=== PATIENT | female | born 1995 | race Caucasian/White ===

== ENCOUNTER 2020-05-13 23:51 | Emergency (ER) | payer MEDICAID, SELFPAY ==
[2020-05-13 23:57] VITALS: BP 125/87; PULSE 88; RESP 16; TEMP 36.9; O2SAT 98; BMI 32.4
--- NOTE | 2020-05-14 00:13 | ED_ITS ---
HPI - Ear Problem General: Chief complaint: Ear Stated complaint: foreign body in ear Time Seen by Provider: 05/13/20 23:53 Source: patient Mode of arrival: ambulatory Limitations: no limitations History of Present Illness: HPI Narrative: Patient is a very nice 25-year-old female who presents to ED today with a complaint of he possible moth in her left ear. Patient tells me they were walking when she felt the moth fly into her ear. No drainage/blood from the ear. No changes in hearing. No tinnitus. MD Complaint: foreign body Location: left ear Severity: mild Relieving factors: nothing Exacerbating factors: nothing Associated symptoms: Reports no associated symptoms and ear or mastoid pain (L ear pain-intermittently when she feels moth move); Denies tinnitus Treatment prior to arrival: none Review of Systems ENMT: Reports: ear or mastoid pain (L ear pain-intermittently when she feels moth move); Denies: ear discharge, change in hearing, tinnitus or disequilibrium Physical Exam Const: COMMON NORMALS: no acute distress, average body habitus, patient oriented x3, no limitations, healthy appearing, alert and well nourished HENMT: COMMON NORMALS: hearing grossly normal bilaterally and external ears normal EXTERNAL EAR: Yes external ears normal, Yes mastoids normal and Yes no periauricular adenopathy EXTERNAL AUDITORY CANAL: Abnormal EAC present EAC laterality: left (can visualize small portion of moth wing and leg) TYMPANIC MEMBRANE: other (TM visualized after insect removed; small amount of superior erythema but intact) Neuro: COMMON NORMALS: patient oriented x3 SENSORIUM/ORIENTATION: Yes alert Procedures FB Removal Ear Location: ear canal (L) Foreign Body Suspected: insect TM intact pre-procedure: yes Foreign Body Removed: yes Foreign Body Removal Technique: irrigation Tympanic Membrane Intact Post Procedure: Yes Patient Tolerated Procedure: well Complications: none Course Vital Signs: Vital signs: Vital Signs Temperature 98.5 F 05/13/20 23:57 Pulse Rate 88 05/13/20 23:57 Respiratory Rate 16 05/13/20 23:57 Blood Pressure 125/87 05/13/20 23:57 Pulse Oximetry 98 05/13/20 23:57 Discharge Plan Discharge Patient Disposition: Home Clinical Impression: Acute foreign body of left ear Qualifiers: Encounter type: initial encounter Qualified Code(s): T16.2XXA - Foreign body in left ear, initial encounter Condition: Stable Discharge Orders: Discharge Order (Routine); Ordered 05/14/20 Ordered By: Theodora Patino Referrals: Charlette Willoughby MD [Primary Care Provider] - Coding Level of Care Code ED Community Services Coordinator for [facility] Mejía
== END 2020-05-14 00:25 | disposition home or self-care (01) ==
PROVIDERS: Emergency Provider Physician Assistant; PCP Family Medicine
DX: T16.2XXA Foreign body in left ear, initial encounter (principal); X58.XXXA Exposure to other specified factors, initial encounter
CPT/HCPCS: 12345; 99281

== ENCOUNTER 2020-11-14 14:55 | Emergency (ER) | payer MEDICAID, SELFPAY ==
[2020-11-14 15:04] VITALS: BP 125/74; PULSE 73; RESP 18; TEMP 36.9; O2SAT 99; BMI 32.4
--- NOTE | 2020-11-14 15:19 | XRR_ITS ---
PROCEDURE INFORMATION: Exam: XR Left Wrist Exam date and time: 11/14/2020 3:20 PM Age: 25 years old Clinical indication: Injury or trauma; Fall; Blunt trauma (contusions or hematomas); Wrist; Left; Additional info: Pain/tender/fall TECHNIQUE: Imaging protocol: XR Left wrist. Views: 1 or 2 views. COMPARISON: No relevant prior studies available. FINDINGS: Bones/joints: Negative for acute bony abnormality Soft tissues: Normal. XR/XR wrist LT 2V [id number] IMPRESSION: No acute findings.
[2020-11-14 15:21] VITALS: BP 122/84; PULSE 81; RESP 16; O2SAT 94
[2020-11-14 15:22] VITALS: PULSE 81
[2020-11-14] MEDS: ibuprofen 600 mg Tablet PO (15:28)
--- NOTE | 2020-11-14 15:32 | W.ED.EXTPRO ---
HPI - Extremity Problem General: Chief complaint: Extremity Injury, Upper Stated complaint: Fall, injury to left wrist/arm Time Seen by Provider: 11/14/20 15:22 History of Present Illness: HPI Narrative: The patient fell and has an injury to her left forearm. Associated pain swelling and tenderness. Neurovascularly intact distal to injury. MD Complaint: extremity pain Pain Consistency: constant Location: left Quality: sharp Radiation: distal Relieving factors: nothing Exacerbating factors: range of motion Associated symptoms: Reports no associated symptoms; Deny chest pain or rash Review of Systems General: Reports: 10 or more systems reviewed and unremarkable except in HPI and below Const: Denies: fatigue Eyes: Denies: change in vision, blurry vision or eye redness ENMT: Denies: throat pain, swelling of lips/tongue, ear or mastoid pain or nasal congestion Card: Denies: chest pain, palpitations, irregular heart rhythm, edema, dyspnea on exertion or orthopnea Resp: Denies: dyspnea, productive cough or non-productive cough GI: Denies: abdominal pain, diarrhea or GI cramping : Denies: flank pain, difficulty voiding, urinary frequency or urinary urgency Musc: Reports: joint pain and joint swelling; Denies: neck pain, back pain, extremity pain, joint redness, limited range of motion or muscle weakness Skin/Breast: Denies: rash, pruritus, erythema, skin pain or skin tenderness Neuro: Denies: headache(s), numbness in extremities, weakness in extremities, sensory changes, difficulty walking, dizziness, confusion or Slurred speech present Psych: Denies: anxiety or depression Endo: Denies: polyuria All/Imm: Denies: urticaria, throat swelling or tongue swelling Physical Exam Const: COMMON NORMALS: no acute distress, average body habitus, patient oriented x3, no limitations, healthy appearing, alert and well nourished GENERAL APPEARANCE: cooperative, comfortable, well kempt and well developed ORIENTATION/CONSCIOUSNESS: Yes awake, Yes oriented to person, Yes oriented to place and Yes oriented to time HENMT: COMMON NORMALS: normocephalic, external ears normal and Normal external nose present HEAD & SCALP: normal to inspection and normocephalic NOSE: Normal external nose present EXTERNAL EAR: Yes external ears normal MOUTH: Normal oral and palatal mucosa present THROAT: posterior oropharynx normal Eye: COMMON NORMALS: Equal, round and reactive pupils present and EOMs intact bilaterally GENERAL EYE: appearance normal, both eyes and all related structures PUPIL: Yes Equal, round and reactive pupils present Neck/C-Spine: COMMON NORMALS: full ROM, no lymphadenopathy, no meningeal signs and no JVD GENERAL: Yes normal visual inspection Lymph: LYMPHATIC: no lymphadenopathy noted Chest: COMMONS NORMALS: normal inspection of the chest and normal palpation of entire chest wall Resp: COMMON NORMALS: normal respiratory effort, No retractions, No use of accessory muscles, clear to auscultation bilaterally and percussion normal EFFORT & INSPECTION: Yes able to speak in complete sentences AUSCULTATION: clear to auscultation bilaterally PERCUSSION: percussion normal Cardio: COMMON NORMALS: no JVD, regular rate, regular rhythm, S1 normal heart sound present, S2 normal heart sound present and Peripheral pulses 2+ throughout RATE: regular rate RHYTHM: regular rhythm HEART SOUNDS: S1 normal heart sound present and S2 normal heart sound present PERIPHERAL PULSES: Peripheral pulses 2+ throughout GI: COMMON NORMALS: Normal to inspection, nondistended, normoactive bowel sounds present, Soft to palpation, non-tender and no masses INSPECTION: Yes normal to inspection PALPATION: Yes Soft to palpation : COMMON NORMALS: Yes no CVA tenderness BLADDER/KIDNEY EXAM: Yes no CVA tenderness Back/Pelvis: COMMON NORMALS: no CVA tenderness, thoracic and lumbar spine normal to inspection, no thoracic nor lumbar tenderness and thoraco-lumbar ROM normal Extremity: COMMON NORMALS: normal to inspection, full ROM, capillary refill normal, no joint enlargement and no pedal edema NARRATIVE EXTREMITY EXAM: Left forearm pain swelling and tenderness associated. Neurovascularly intact distal to injury. GENERAL: Yes normal exam except as noted Neuro: COMMON NORMALS: patient oriented x3, CN's II-XII intact bilaterally, moves all extremities, no focal motor deficits, no sensory deficits noted and gait normal SENSORIUM/ORIENTATION: Yes alert, Yes oriented to person, Yes oriented to place and Yes oriented to time MENINGEAL SIGNS: Yes no meningeal signs Psych: COMMON NORMALS: mental status grossly normal, Normal thought process present, cooperative, normal affect and speech normal APPEARANCE: Yes well kempt ATTITUDE: Yes calm SPEECH: Yes normal speech THOUGHT PROCESS: Normal thought process present Skin: COMMON NORMALS: no rashes or lesions noted GENERAL SKIN EXAM: no rashes or lesions noted Course Vital Signs: Vital signs: Vital Signs Temperature 98.4 F 11/14/20 15:04 Pulse Rate 81 11/14/20 15:22 Respiratory Rate 16 11/14/20 15:21 Blood Pressure 122/84 11/14/20 15:21 Pulse Oximetry 94 11/14/20 15:21 MDM - Extremity (Nontraumatic) MDM Narrative: Medical decision making narrative: X-ray negative for fracture. Likely sprain. PCP in a week with MRI at that time if still in pain. Ibuprofen for pain Discharge Plan Discharge Patient Disposition: Home Clinical Impression: Sprain and strain of wrist Condition: Stable Prescriptions: No Action No Known Home Medications RF: 0 Discharge Orders: Discharge ED (Routine); Ordered 11/14/20 Ordered By: Shane Henderson Referrals: Charlette Willoughby MD [Primary Care Provider] - Discharge Diet: Advance as tolerated Discharge Activity: Resume usual activity Patient Instructions: Wrist Sprain (ED), Opioid Safety Activity Restrictions/Additional Instructions: The x-rays taken showed no fractures. You have likely sprained your wrist. Please follow-up with your primary care physician in a week and take ibuprofen for pain. Get an MRI in a week if you are still in pain. Coding Level of Care Code ED Surgical Technologist for [facility] Fwd Exam Comprehensive
--- NOTE | 2020-11-14 16:20 | PC.NURSE ---
1600 attempted to give report to med surg. Staff member stated they are working on assigning a nurse.
[2020-11-14 16:55] VITALS: RESP 18
== END 2020-11-14 16:53 | disposition home or self-care (01) ==
PROVIDERS: Emergency Provider Family Medicine; PCP Family Medicine
DX: S63.502A Unspecified sprain of left wrist, initial encounter (principal); S66.912A Strain of unspecified muscle, fascia and tendon at wrist and hand level, left hand, initial encounter; W19.XXXA Unspecified fall, initial encounter
CPT/HCPCS: 73100; 99283

== ENCOUNTER → 2023-06-08 09:05 | Outpatient (BNVA) | payer MEDICAID, SELFPAY | PROVIDERS: PCP Family Medicine; Visit Provider Obstetrics & Gynecology | DX: Z30.431 Encounter for routine checking of intrauterine contraceptive device (principal) | CPT/HCPCS: 81025 ==

== ENCOUNTER → 2024-06-24 16:16 | Outpatient (BNVA) | payer MEDICAID, SELFPAY | PROVIDERS: PCP Family Medicine; Visit Provider Obstetrics & Gynecology | DX: Z00.00 Encounter for general adult medical examination without abnormal findings (principal) | CPT/HCPCS: 87624 ==